=== PATIENT | male | born 1960 | race Caucasian/White ===

== ENCOUNTER 2017-12-24 16:34 | Emergency (ER) | payer OTHER ==
[~2017-12-24] VITALS: Ht 180.3 cm; Wt 117.0 kg
[~2017-12-24 16:34] MED LIST: Z.0.NO CURRENT MEDS
[2017-12-24 16:51] VITALS: BP 159/84; PULSE 70; RESP 16; TEMP 98.5; O2SAT 94
[2017-12-24 17:18] LABS: BILIRUBIN, URINE NEG (NEG); BLOOD, URINE LARGE (NEG); GLUCOSE,URINE NEG (NEG); KETONE, URINE TRACE mg/dL (NEG); NITRITE,URINE NEG (NEG); PH, URINE 5.5 (5.0-8.5); URINE LEUKOCYTE ESTERASE NEG (NEG)
[2017-12-24] MEDS ORDERED: KETOROLAC TROMETHAMINE 30 MG/ML (IVP) VIAL IV PUSH ONE (17:45)
[2017-12-24] MEDS ORDERED: SODIUM CHLOR 0.9% 1000 ML INJ 1,000 ML IV ONE (17:45)
--- NOTE | 2017-12-24 17:47 | PD ---
HPI Chief Complaint: Flank/Kidney Pain Time Seen by Provider: 17:38 Travel History International Travel<30 days: No Contact w/Intl Traveler<30days: No Traveled to known affect area: No History of Present Illness HPI 57yo M with PMH of nephrolithiasis presents to the ED with c/o right flank pain since 1pm. Said it is sharp, intermittent and he was nauseous. Denies any fever, chest pain, sob, n/v, abdominal pain, focal weakness or numbness, fall. Pt had kidney stone 10 years ago. Pt also has some urinary complaints. PFSH Past Medical History Heart Rhythm Problems: No Cardiac Catheterization: No Cardiovascular Problems: No High Cholesterol: No Congestive Heart Failure: No Diabetes: Yes Diminished Hearing: No Gastrointestinal Disorders: Yes (COLONOSCOPY 2010: BENIGN POLYPS) Tetanus Vaccination: < 5 Years Influenza Vaccination: No Past Surgical History Surgical History: No Previous Surgery Coronary Artery Bypass Graft: No Other Surgery: Yes (VASECTOMY) Social History Alcohol Use: No Tobacco Use: No Substance Use: No Allergies-Medications (Allergen,Severity, Reaction): Coded Allergies: No Known Allergies (Verified Adverse Reaction, Unknown, 12/24/17) Reported Meds & Prescriptions Reported Meds & Active Scripts Active Review of Systems Except as stated in HPI: all other systems reviewed are Neg Physical Exam Narrative GENERAL: 57yo M not in distress. SKIN: Focused skin assessment warm/dry. HEAD: Atraumatic. Normocephalic. EYES: Pupils equal and round. No scleral icterus. No injection or drainage. ENT: No nasal bleeding or discharge. Mucous membranes pink and moist. NECK: Trachea midline. No JVD. CARDIOVASCULAR: Regular rate and rhythm. No murmur appreciated. RESPIRATORY: No accessory muscle use. Clear to auscultation. Breath sounds equal bilaterally. GASTROINTESTINAL: Abdomen soft, No tenderness or guarding. BACK: No CVA tenderness bilaterally. MUSCULOSKELETAL: No obvious deformities. No clubbing. No cyanosis. No edema. NEUROLOGICAL: Awake and alert. No obvious cranial nerve deficits. Motor grossly within normal limits. Normal speech. PSYCHIATRIC: Appropriate mood and affect; insight and judgment normal. Data Data Last Documented VS Vital Signs Date Time Temp Pulse Resp B/P (MAP) Pulse Ox O2 Delivery O2 Flow Rate FiO2 12/24/17 16:51 98.5 70 16 159/84 (109) 94 Orders Orders Urinalysis - C+S If Indicated (12/24/17 16:57) Basic Metabolic Panel (Bmp) (12/24/17 17:42) Ct Abd/Pel W/O Iv Contrast (12/24/17 ) Ketorolac Inj (Toradol Inj) (12/24/17 17:45) Sodium Chlor 0.9% 1000 Ml Inj (Ns 1000 M (12/24/17 17:45) Labs Laboratory Tests Test 12/24/17 17:10 12/24/17 19:00 Urine Color YELLOW Urine Turbidity CLEAR Urine pH 5.5 Urine Specific [place] 1.030 Urine Protein NEG mg/dL Urine Glucose (UA) NEG mg/dL Urine Ketones TRACE mg/dL Urine Occult Blood LARGE Urine Nitrite NEG Urine Bilirubin NEG Urine Leukocyte Esterase NEG Urine RBC 50-99 /hpf Urine WBC 0-2 /hpf Urine Squamous Epithelial Cells 0-5 /hpf Urine Mucus MANY /lpf Microscopic Urinalysis Comment CULT NOT INDICATED Blood Urea Nitrogen 17 MG/DL Creatinine 0.84 MG/DL Random Glucose 114 MG/DL Calcium Level 8.8 MG/DL Sodium Level 138 MEQ/L Potassium Level 4.2 MEQ/L Chloride Level 105 MEQ/L Carbon Dioxide Level 29.0 MEQ/L Anion Gap 4 MEQ/L Estimat Glomerular Filtration Rate 94 ML/MIN [facility] Medical Decision Making Medical Screen Exam Complete: Yes Emergency Medical Condition: Yes Differential Diagnosis Nephrolithiasis vs. pyelonephritis vs. musculoskeletal pain Narrative Course 57yo M well appearing male with remote history of nephrolithiasis here with right flank pain. Labs reviewed, normal creatinine. UA showed large blood. 0- [address] a/p showed acute obstructive uropathy of right distal ureter secondary to a 4mm calcified calculus resulting in mild ureteropelvocaliectasis. 1.6 cm exophytic lower pole left renal cyst. Pt given toradol and pain has resolved. Pt tolerating PO and is nontoxic appearing. Instructed pt to follow up with urology tomorrow. Return precautions given. Diagnosis Primary Impression: Right distal ureteral calculus Referrals: Carlton Zavala DO call for appointment Acute obstructive uropathy of right distal ureter secondary to 4mm calculus. Patient Instructions: General Instructions Departure Forms: Tests/Procedures Additional Instructions: Please follow up with urology clinic in 1-2 days. Return to the ED if symptoms worsen. Med/Other Pt SpecificInfo: Prescription(s) given Scripts Tamsulosin (Flomax) 0.4 Mg Cap 0.4 MG PO HS for Manage Prostate Problems, #10 CAP 0 Refills Prov: Nicole Connelly DO 12/24/17 Ibuprofen (Ibuprofen) 600 Mg Tab 600 MG PO Q8HR Y for PAIN, #20 TAB 0 Refills Prov: Nicole Connelly DO 12/24/17 Disposition: 01 DISCHARGE HOME Condition: Stable Nicole Connelly DO Dec 24, 2017 17:47
[2017-12-24 18:00] LABS: URINE COLOR YELLOW (YELLW/STRAW)
[2017-12-24 18:01] LABS: MUCUS URINE MANY /lpf (OCC); WBC, URINE 0-2 /hpf (0-5)
[2017-12-24 18:02] LABS: SQUAMOUS EPITHELIAL CELL URINE 0-5 /hpf (0-5)
--- NOTE | 2017-12-24 18:21 | RADRPT ---
EXAM DATE/TIME: 12/24/2017 18:03 [place] COMPARISON: No previous studies available for comparison. INDICATIONS : Right flank pain. Dysuria. ORAL CONTRAST: No oral contrast ingested. RADIATION DOSE: 27.33 CTDIvol (mGy) ; High dose protocol; Patient body habitus MEDICAL HISTORY : Renal calculi. Diabetes mellitus type 2. SURGICAL HISTORY : None. ENCOUNTER: Initial ACUITY: 1 week PAIN SCALE: 7/10 LOCATION: Right flank TECHNIQUE: Volumetric scanning of the abdomen and pelvis was performed. Using automated exposure control and ad justment of the mA and/or kV according to patient size, radiation dose was kept as low as reasonably achievable to obtain optimal diagnostic quality images. DICOM format image data is available electro nically for review and comparison. FINDINGS: There is acute obstructive uropathy of the right distal ureter secondary to a 4 mm calcified calculus resulting in mild ureteropelvicaliectasis. There is a 1.6 cm exophytic cyst arising from the lower p ole of the left kidney. The appendix is normal. Evaluation of the solid organs of the abdomen is limi carmen by the lack of intravenous contrast. There is a small left inguinal hernia containing only fat. T he prostate gland is mildly prominent and contains central calcifications. No bowel obstruction is no carmen. Mild degenerative changes and scoliosis of the lumbar spine are noted. CONCLUSION: 1. Acute obstructive uropathy of the right distal ureter secondary to a 4 mm calcified calculus resul ting in mild ureteropelvocaliectasis. 2. 1.6 cm exophytic lower pole left renal cyst. 3. Small left inguinal hernia containing only fat. 4. Mildly enlarged prostate containing central calcifications. 5. Mild degenerative changes and scoliosis of the lumbar spine. Isaac Kelly MD on December 24, 2017 at 18:13 Board Certified Radiologist. This report was verified electronically.
[2017-12-24 19:18] LABS: CALCIUM 8.8 MG/DL (8.5-10.1)
[2017-12-24 19:22] LABS: CREATININE 0.84 MG/DL (0.60-1.30)
[2017-12-24] MEDS ORDERED: IBUP-232 PO (19:30)
[2017-12-24] MEDS ORDERED: TAMS5CAP PO (19:30)
[2017-12-24 19:51] VITALS: BP 156/78
== END 2017-12-24 19:53 | disposition home or self-care (01) ==
LOC: PHED 16:34
DX: N20.1 Calculus of ureter (principal); N28.1 Cyst of kidney, acquired; K40.90 Unilateral inguinal hernia, without obstruction or gangrene, not specified as recurrent; N40.0 Benign prostatic hyperplasia without lower urinary tract symptoms
CPT/HCPCS: 74176; 80048; 81001; 96361; 96374; 99285; J1885; J7030